=== PATIENT | female | born 2000 | race Caucasian/White ===

== ENCOUNTER 2022-08-29 13:46 | Emergency (ER) | payer MEDICAID ==
[~2022-08-29] VITALS: Ht 162.6 cm; Wt 65.0 kg
[2022-08-29 13:54] VITALS: BP 125/74; PULSE 96; RESP 18; O2SAT 99
[2022-08-29 16:45] VITALS: TEMP 98.9
[2022-08-29] MEDS ORDERED: ACETAMINOPHEN 325MG TABLET PO NR (16:45)
[2022-08-29] MEDS ORDERED: TETANUS, DIPHTHERIA, PERTUSSIS VAC/PF 0.5ML (>10YR OLD) IM ONE (17:45)
== END 2022-08-29 18:01 | disposition home or self-care (01) ==
LOC: ER 13:46
DX: M79.601 Pain in right arm (principal); M25.572 Pain in left ankle and joints of left foot; M54.2 Cervicalgia; V49.9XXA Car occupant (driver) (passenger) injured in unspecified traffic accident, initial encounter; Y93.89 Activity, other specified; Y92.89 Other specified places as the place of occurrence of the external cause; Y99.8 Other external cause status
CPT/HCPCS: 73060; 73080; 73090; 73610; 99284; Z7610